=== PATIENT | female | born 1975 | race Caucasian/White ===

== ENCOUNTER 2022-01-20 11:56 | Outpatient (CLI) | payer OTHER ==
[~2022-01-20 11:56] MED LIST: AMBIEN10 MG PO; ATIVAN1 M1 PO; CIPRO750 MG PO; CLONAZEPAM2 MG/TAB PO; CYMBALTA60 MG PO; Colace 100MG PO; ELAVIL PO; FIORICET 50-301 EACH PO; METHYLPRED4 MG/DOSE- PO; NEURONTIN PO; NEURONTIN300 MG PO; ORPH100T PO; PERCOCET 5/3251 TAB PO; PREVACID30 MG PO; VOLTAREN PO; WELLBUTRIN XL150 MG PO; ZANTAC300 MG PO
== END 2022-01-20 12:11 | disposition home or self-care (01) ==
LOC: RAD 11:56
PROVIDERS: ATTEND Surgery
DX: K59.01 Slow transit constipation (principal); K59.02 Outlet dysfunction constipation

== ENCOUNTER 2022-07-28 11:21 | Outpatient (CLI) | payer OTHER | END 2022-07-28 11:31 | disposition home or self-care (01) | LOC: RAD 11:21 | PROVIDERS: ATTEND Surgery | DX: K59.01 Slow transit constipation (principal); K59.02 Outlet dysfunction constipation ==